=== PATIENT | male | born 1990 | race Caucasian/White ===

== ENCOUNTER 2021-03-23 23:40 | Inpatient (IN) | payer OTHER ==
[~2021-03-23] VITALS: Ht 175.3 cm; Wt 90.0 kg
[2021-03-24 00:37] LABS: BASOPHILS % (AUTO) 1 % (0-1); EOSINOPHILS % (AUTO) 2 % (1-7); LYMPHOCYTES % (AUTO) 22 % (22-44); MEAN CORPUSCULAR HEMOGLOBIN 30.1 pg (27.5-34.5); MEAN CORPUSCULAR HGB CONC 34.1 g/dL (33.2-36.2); MEAN PLATELET VOLUME 10.3 fL (7.4-10.4); MONOCYTES % (AUTO) 7 % (2-9); NEUTROPHILS % (AUTO) 68 % (42-75); PLATELET COUNT 198 x10^3/uL (130-400); RED BLOOD COUNT 5.07 x10^6/uL (4.38-5.82); RED CELL DISTRIBUTION WIDTH 13.6 % (9.4-14.8)
[2021-03-24 00:50] LABS: ALBUMIN 3.3 g/dL (3.4-5.0); ANION GAP 4 mmol/L (5-15); CALCIUM 8.2 mg/dL (8.5-10.1); CHLORIDE 108 mmol/L (98-107)
[2021-03-24] MEDS ORDERED: ONDANSETRON 2MG/ML, 2ML ONE (01:00)
[2021-03-24] MEDS ORDERED: SODIUM CHLORIDE 0.9% 1,000 ML IV ONE (01:00)
[2021-03-24] MEDS ORDERED: ONDANSETRON 2MG/ML, 2ML IVPush PRN (01:00)
[2021-03-24] MEDS ORDERED: MORPHINE SULFATE 4 MG/ML, 1ML IVPush PRN (01:00)
[2021-03-24] MEDS ORDERED: MORPHINE SULFATE 4 MG/ML, 1ML ONE (01:01)
[2021-03-24] MEDS ORDERED: BACLOFEN 10 MG TABLET PO PRN (02:00)
[2021-03-24] MEDS ORDERED: LABETALOL 5MG/ML, 20ML IVPush PRN (02:00)
[2021-03-24] MEDS ORDERED: DEXAMETHASONE 4 MG/ML, 5ML IVPush ONE (02:00)
[2021-03-24] MEDS ORDERED: KETOROLAC 30 MG/1 ML IV PRN (02:00)
[2021-03-24 02:47] VITALS: BP 139/79
[2021-03-24] MEDS ORDERED: OXYC10TA47 PO (03:01)
[2021-03-24] MEDS ORDERED: METH4TAB6 PO (03:01)
[2021-03-24] MEDS ORDERED: CYCL10TA2 PO (03:01)
[2021-03-24] MEDS: POLYETHYLENE GLYCOL 17 GM PACKET PO SCH ×3 (03:30→20:33)
[2021-03-24] MEDS: ACETAMINOPHEN 500 MG TABLET PO SCH ×5 (03:30→20:33)
[2021-03-24] MEDS: morphine SULFATE 10 MG/ML, 1ML IVPush PRN ×2 (03:38→12:01)
[2021-03-24 08:02] VITALS: BP 131/84
[2021-03-24] MEDS: OXYcodone IR 5MG TABLET PO PRN ×2 (09:34→15:22)
[2021-03-24] MEDS: METHOCARBAMOL 500 MG TABLET PO SCH ×3 (11:10→20:32)
[2021-03-24] MEDS: DEXAMETHASONE 4 MG/ML, 1ML IVPush SCH ×2 (11:10→17:48)
[2021-03-24] MEDS: GABAPENTIN 300 MG CAPSULE PO SCH ×3 (12:00→20:32)
[2021-03-24 14:21] VITALS: BP 121/68
[2021-03-24] MEDS ORDERED: TRIAMCINOLONE ACETONIDE 40 MG/ML, 1ML ONE (15:52)
[2021-03-24] MEDS ORDERED: FENTANYL PF 100 MCG/2ML ONE (15:52)
[2021-03-24] MEDS ORDERED: NALOXONE 1 MG/ML, 2ML ONE (15:52)
[2021-03-24] MEDS ORDERED: LIDOCAINE 1%, 10ML ONE (15:52)
[2021-03-24 20:39] VITALS: BP 135/95
[2021-03-25] MEDS: OXYcodone IR 5MG TABLET PO PRN ×2 (00:05→03:56)
[2021-03-25] MEDS: ACETAMINOPHEN 500 MG TABLET PO SCH ×6 (03:53→22:36)
[2021-03-25 04:01] VITALS: BP 115/71
[2021-03-25] MEDS: METHOCARBAMOL 500 MG TABLET PO SCH ×2 (05:34→10:43)
[2021-03-25] MEDS: DEXAMETHASONE 4 MG/ML, 1ML IVPush SCH ×5 (05:35→23:58)
[2021-03-25 07:02] VITALS: BP 107/60
[2021-03-25] MEDS: GABAPENTIN 300 MG CAPSULE PO SCH ×3 (08:12→22:36)
[2021-03-25] MEDS: POLYETHYLENE GLYCOL 17 GM PACKET PO SCH ×2 (08:13→22:36)
[2021-03-25] MEDS ORDERED: HYDROmorphone 2 MG/ML, 1ML IVPush SCH (10:30)
[2021-03-25] MEDS ORDERED: HYDROmorphone 2 MG/ML, 1ML IVPush ONE (10:30)
[2021-03-25] MEDS: morphine SULFATE 10 MG/ML, 1ML IVPush PRN ×3 (11:24→20:27)
[2021-03-25 13:14] VITALS: BP 128/69
[2021-03-25] MEDS ORDERED: MAGNESIUM CITRATE 300ML ORAL SOL PO ONE (13:30)
[2021-03-25] MEDS ORDERED: KETOROLAC 30 MG/1 ML IV ONE (13:30)
[2021-03-25] MEDS ORDERED: MAGNESIUM CITRATE 300ML ORAL SOL PO PRN (13:30)
[2021-03-25] MEDS: DIAZEPAM 2 MG TABLET PO PRN ×2 (13:47→23:56)
[2021-03-25] MEDS: HYDROmorphone 2MG TABLET PO PRN ×3 (13:48→22:37)
[2021-03-25] MEDS: METHOCARBAMOL 750 MG TABLET PO SCH ×2 (16:28→22:36)
[2021-03-25] MEDS ORDERED: KETOROLAC 30 MG/1 ML IV SCH (19:30)
[2021-03-25 20:12] VITALS: BP 137/86
[2021-03-25] MEDS: KETOROLAC 30 MG/1 ML IV SCH (20:26)
[2021-03-26] MEDS: morphine SULFATE 10 MG/ML, 1ML IVPush PRN ×5 (00:02→23:30)
[2021-03-26 01:17] VITALS: BP 114/60
[2021-03-26] MEDS: KETOROLAC 30 MG/1 ML IV SCH ×2 (02:58→08:30)
[2021-03-26] MEDS: HYDROmorphone 2MG TABLET PO PRN ×2 (02:59→20:05)
[2021-03-26] MEDS: ACETAMINOPHEN 500 MG TABLET PO SCH ×6 (02:59→23:08)
[2021-03-26 05:03] LABS: BASOPHILS % (AUTO) 0 % (0-1); EOSINOPHILS % (AUTO) 0 % (1-7); LYMPHOCYTES % (AUTO) 6 % (22-44); MEAN CORPUSCULAR HEMOGLOBIN 29.4 pg (27.5-34.5); MEAN CORPUSCULAR HGB CONC 33.6 g/dL (33.2-36.2); MEAN PLATELET VOLUME 10.4 fL (7.4-10.4); MONOCYTES % (AUTO) 6 % (2-9); NEUTROPHILS % (AUTO) 89 % (42-75); PLATELET COUNT 210 x10^3/uL (130-400); RED BLOOD COUNT 5.26 x10^6/uL (4.38-5.82); RED CELL DISTRIBUTION WIDTH 13.2 % (9.4-14.8)
[2021-03-26 05:09] LABS: ALANINE AMINOTRANSFERASE 16 U/L (12-78); ALBUMIN 3.2 g/dL (3.4-5.0); ANION GAP 4 mmol/L (5-15); CALCIUM 8.5 mg/dL (8.5-10.1); CHLORIDE 104 mmol/L (98-107)
[2021-03-26 05:12] LABS: ALKALINE PHOSPHATASE 52 U/L (45-117); BILIRUBIN,TOTAL 0.5 mg/dL (0.2-1.0); CREATININE 0.97 mg/dL (0.7-1.3); TOTAL PROTEIN 6.9 g/dL (6.4-8.2)
[2021-03-26 06:23] VITALS: BP 114/66
[2021-03-26] MEDS: DEXAMETHASONE 4 MG/ML, 1ML IVPush SCH ×3 (06:35→23:08)
[2021-03-26] MEDS: POLYETHYLENE GLYCOL 17 GM PACKET PO SCH ×2 (09:00→20:06)
[2021-03-26] MEDS: METHOCARBAMOL 750 MG TABLET PO SCH ×2 (09:00→23:08)
[2021-03-26] MEDS: GABAPENTIN 300 MG CAPSULE PO SCH ×3 (09:00→23:09)
[2021-03-26] MEDS ORDERED: CHLORHEXIDINE 15 ML UDC ONE (09:16)
[2021-03-26] MEDS ORDERED: CHLORHEXIDINE 15 ML UDC PO ONE (09:30)
[2021-03-26] MEDS ORDERED: MEPERIDINE/PF 25MG/0.5ML IVPush PRN (10:00)
[2021-03-26] MEDS ORDERED: PROMETHAZINE 25 MG/ML, 1ML IVPush PRN (10:00)
[2021-03-26] MEDS ORDERED: HALOPERIDOL 5 MG/ML IV PRN (10:00)
[2021-03-26] MEDS ORDERED: OXYcodone 5 MG/5 ML ORAL.SOL UDC PO PRN (10:00)
[2021-03-26] MEDS ORDERED: ACETAMINOPHEN 325 MG TABLET PO PRN (10:00)
[2021-03-26] MEDS ORDERED: hydrALAzine 20 MG/ML, 1ML IV PRN (10:00)
[2021-03-26] MEDS ORDERED: FENTANYL PF 100 MCG/2ML IV PRN (10:00)
[2021-03-26] MEDS ORDERED: DIPHENHYDRAMINE 50 MG/ML, 1ML IVPush PRN (10:00)
[2021-03-26] MEDS ORDERED: HYDROmorphone 1 MG/ML, 1ML INJ IVPush PRN ×2 (10:00→12:30)
[2021-03-26] MEDS ORDERED: LABETALOL 5MG/ML, 20ML IV PRN (10:00)
[2021-03-26] MEDS ORDERED: BUPIVACAINE/PF 0.25% ONE (10:12)
[2021-03-26] MEDS ORDERED: EPINEPHRINE 1 MG/ML, 1ML ONE (10:12)
[2021-03-26] MEDS ORDERED: VANCOMYCIN 1,000 MG ONE (10:12)
[2021-03-26] MEDS ORDERED: PROPOFOL 50 ML ONE (10:16)
[2021-03-26] MEDS ORDERED: MIDAZOLAM 1 MG/ML, 2ML ONE (10:16)
[2021-03-26] MEDS ORDERED: FENTANYL PF 250 MCG/5ML ONE (10:16)
[2021-03-26] MEDS ORDERED: HYDROmorphone 2 MG/ML, 1ML ONE (11:00)
[2021-03-26] MEDS ORDERED: FENTANYL PF 100 MCG/2ML ONE (11:38)
[2021-03-26] MEDS ORDERED: NEOSTIGMINE 1 MG/ML, 10ML ONE (11:53)
[2021-03-26] MEDS ORDERED: CEFAZOLIN 1,000 MG ONE (11:53)
[2021-03-26] MEDS ORDERED: GLYCOPYRROLATE 0.2MG/1ML, 5ML ONE (11:53)
[2021-03-26] MEDS ORDERED: PROPOFOL 10 MG/ML, 20ML ONE (11:53)
[2021-03-26] MEDS ORDERED: SUCCINYLCHOLINE 20 MG/ML, 10ML ONE (11:53)
[2021-03-26] MEDS ORDERED: ONDANSETRON 2MG/ML, 2ML ONE (11:53)
[2021-03-26] MEDS ORDERED: ROCURONIUM 10MG/ML,5ML ONE (11:53)
[2021-03-26] MEDS ORDERED: DEXAMETHASONE 4 MG/ML, 1ML ONE (11:53)
[2021-03-26] MEDS ORDERED: PHARMACY MAY ADJ FOR RENAL FX MC PRN (12:30)
[2021-03-26] MEDS ORDERED: METHOCARBAMOL 1,000 MG in DEXTROSE 5% 100 ML IV ONE (13:00)
[2021-03-26 13:15] VITALS: BP 133/83
[2021-03-26] MEDS: CEFAZOLIN PMX 1GM/50ML 50 ML IVPB SCH (20:06)
[2021-03-26 20:23] VITALS: BP 121/75
[2021-03-27 00:04] VITALS: BP 128/73
[2021-03-27 03:38] VITALS: BP 115/68
[2021-03-27] MEDS: ACETAMINOPHEN 500 MG TABLET PO SCH ×2 (03:42→08:50)
[2021-03-27] MEDS: DIAZEPAM 2 MG TABLET PO PRN ×2 (03:42→22:02)
[2021-03-27] MEDS: CEFAZOLIN PMX 1GM/50ML 50 ML IVPB SCH (03:43)
[2021-03-27] MEDS: HYDROmorphone 2MG TABLET PO PRN ×2 (03:43→08:50)
[2021-03-27] MEDS: DEXAMETHASONE 4 MG/ML, 1ML IVPush SCH ×4 (04:32→21:40)
[2021-03-27] MEDS: ENOXAPARIN 40 MG/0.4 ML SQ SCH (06:48)
[2021-03-27] MEDS: morphine SULFATE 10 MG/ML, 1ML IVPush PRN (06:56)
[2021-03-27] MEDS: METHOCARBAMOL 750 MG TABLET PO SCH ×3 (08:50→21:40)
[2021-03-27] MEDS: GABAPENTIN 300 MG CAPSULE PO SCH ×3 (08:50→21:40)
[2021-03-27] MEDS: POLYETHYLENE GLYCOL 17 GM PACKET PO SCH ×2 (08:56→21:40)
[2021-03-27 14:00] VITALS: BP 147/89
[2021-03-27] MEDS: HYDROcodone/APAP 10/325 MG TABLET PO PRN ×2 (16:49→22:02)
[2021-03-27 21:45] VITALS: BP 151/96
[2021-03-28] MEDS: HYDROmorphone 2MG TABLET PO PRN ×4 (00:18→22:27)
[2021-03-28] MEDS: MELATONIN 5 MG TABLET PO PRN ×2 (00:21→22:26)
[2021-03-28 01:49] VITALS: BP 136/69
[2021-03-28] MEDS: DEXAMETHASONE 4 MG/ML, 1ML IVPush SCH ×4 (04:06→22:26)
[2021-03-28] MEDS: ENOXAPARIN 40 MG/0.4 ML SQ SCH (06:53)
[2021-03-28 07:41] VITALS: BP 109/61
[2021-03-28] MEDS ORDERED: GABA300C PO ×2 (08:10)
[2021-03-28] MEDS ORDERED: METH-640 PO ×2 (08:10)
[2021-03-28 08:51] LABS: BASOPHILS % (AUTO) 0 % (0-1); EOSINOPHILS % (AUTO) 0 % (1-7); LYMPHOCYTES % (AUTO) 6 % (22-44); MEAN CORPUSCULAR HEMOGLOBIN 29.9 pg (27.5-34.5); MEAN CORPUSCULAR HGB CONC 34.1 g/dL (33.2-36.2); MEAN PLATELET VOLUME 10.5 fL (7.4-10.4); MONOCYTES % (AUTO) 9 % (2-9); NEUTROPHILS % (AUTO) 85 % (42-75); PLATELET COUNT 204 x10^3/uL (130-400); RED BLOOD COUNT 4.95 x10^6/uL (4.38-5.82); RED CELL DISTRIBUTION WIDTH 13.1 % (9.4-14.8)
[2021-03-28 08:53] LABS: ALANINE AMINOTRANSFERASE 14 U/L (12-78); ALBUMIN 3.2 g/dL (3.4-5.0); ANION GAP 3 mmol/L (5-15); CALCIUM 8.7 mg/dL (8.5-10.1); CHLORIDE 105 mmol/L (98-107); CREATININE 0.82 mg/dL (0.7-1.3)
[2021-03-28 08:56] LABS: ALKALINE PHOSPHATASE 62 U/L (45-117); BILIRUBIN,TOTAL 0.4 mg/dL (0.2-1.0); TOTAL PROTEIN 6.8 g/dL (6.4-8.2)
[2021-03-28] MEDS: POLYETHYLENE GLYCOL 17 GM PACKET PO SCH ×2 (09:22→20:25)
[2021-03-28] MEDS: GABAPENTIN 300 MG CAPSULE PO SCH ×3 (09:23→20:25)
[2021-03-28] MEDS: METHOCARBAMOL 750 MG TABLET PO SCH ×2 (09:23→20:25)
[2021-03-28] MEDS: OXYcodone/APAP 5/325MG TABLET PO PRN ×3 (12:14→20:26)
[2021-03-28] MEDS: DIAZEPAM 2 MG TABLET PO PRN (12:14)
[2021-03-28 19:03] VITALS: BP 145/82
[2021-03-29 02:41] VITALS: BP 105/73
[2021-03-29] MEDS: HYDROmorphone 2MG TABLET PO PRN ×3 (02:43→16:10)
[2021-03-29] MEDS: METHOCARBAMOL 750 MG TABLET PO SCH ×2 (04:32→13:44)
[2021-03-29] MEDS: DEXAMETHASONE 4 MG/ML, 1ML IVPush SCH ×3 (04:32→18:13)
[2021-03-29] MEDS: OXYcodone/APAP 5/325MG TABLET PO PRN ×3 (04:39→18:13)
[2021-03-29] MEDS: ENOXAPARIN 40 MG/0.4 ML SQ SCH (06:48)
[2021-03-29 07:27] VITALS: BP 104/58
[2021-03-29] MEDS ORDERED: MAGNESIUM CITRATE 300ML ORAL SOL PO ONE (09:30)
[2021-03-29] MEDS: GABAPENTIN 300 MG CAPSULE PO SCH ×2 (09:32→16:05)
[2021-03-29] MEDS: POLYETHYLENE GLYCOL 17 GM PACKET PO SCH (09:32)
[2021-03-29] MEDS ORDERED: METHYLNALTREXONE 12 MG/0.6 ML SYR SQ SCH (11:30)
[2021-03-29] MEDS ORDERED: BISACODYL 10 MG SUPP PR PRN (12:30)
[2021-03-29 14:26] VITALS: BP 161/81
[2021-03-29] MEDS ORDERED: HYDR1TAB53 PO ×5 (16:12→17:30)
[2021-03-29] MEDS ORDERED: HYDR2TAB40 PO ×5 (16:12→17:30)
[2021-03-29] MEDS ORDERED: DIAZ2TAB3 PO ×5 (16:12→17:30)
[2021-03-29] MEDS ORDERED: DOCU100C33 PO ×3 (16:13→17:30)
[2021-03-29] MEDS ORDERED: PRED20TA PO ×5 (16:14→17:30)
[2021-03-29] MEDS ORDERED: METH-640 PO ×3 (16:53→17:30)
[2021-03-29] MEDS ORDERED: GABA300C PO ×3 (16:53→17:30)
== END 2021-03-29 20:38 | disposition home or self-care (01) | DRG 520 ==
LOC: ED 03-24 00:18 → EDIP 03-24 02:13 → 4NE 03-24 02:45 → OBSVTOIN 03-25 15:33
PROVIDERS: ADMIT Internal Medicine; ATTEND Hospitalist
PROC: 0SB40ZZ Excision of Lumbosacral Disc, Open Approach (ICD-10-PCS; 2021-03-26)
PROC: 01NB0ZZ Release Lumbar Nerve, Open Approach (ICD-10-PCS; 2021-03-26)
PROC: 00NY0ZZ Release Lumbar Spinal Cord, Open Approach (ICD-10-PCS; 2021-03-26)
PROC: 4A11X4G Monitoring of Peripheral Nervous Electrical Activity, Intraoperative, External Approach (ICD-10-PCS; 2021-03-26)
PROC: 3E0S3BZ Introduction of Anesthetic Agent into Epidural Space, Percutaneous Approach (ICD-10-PCS; 2021-03-26)
PROC: 01NR0ZZ Release Sacral Nerve, Open Approach (ICD-10-PCS; principal; 2021-03-26 10:00)
DX: M48.061 Spinal stenosis, lumbar region without neurogenic claudication (principal); M51.16 Intervertebral disc disorders with radiculopathy, lumbar region; M51.17 Intervertebral disc disorders with radiculopathy, lumbosacral region; K59.00 Constipation, unspecified; M47.26 Other spondylosis with radiculopathy, lumbar region; M43.06 Spondylolysis, lumbar region; N52.9 Male erectile dysfunction, unspecified; Z20.822 Contact with and (suspected) exposure to COVID-19
CPT/HCPCS: 36415; 72100; 72110; 96374; 96375; 99285; J3490; 62322; 62323; 72131; 80048; 80053; 82040; 83735; 84100; 85025; 87635; 95938; 95941; C1729; G0378; J0171; J0690; J1100; J1170; J1650; J1885; J2250; J2405; J2704; J2710; J3010; J3301; J3370; J0330; J2270; J2310; J2800; J7030